=== PATIENT | female | born 1970 | race Caucasian/White ===

== ENCOUNTER 2018-03-13 05:07 | Outpatient (CLI) | payer BC ==
[~2018-03-13 05:07] MED LIST: CEPH-357 PO; CETI-1 PO; CYCL-394 PO; HYDR1TAB10 PO; MONT10TA21 PO; PREG75CA30 PO; ZOV200C PO; [UNRECOGNIZED DRUG - CODE] PO
== END 2018-03-13 23:59 | disposition home or self-care (01) ==
LOC: DIABETIC 05:07
PROVIDERS: ATTEND Nurse Practitioner Family
DX: Z71.3 Dietary counseling and surveillance (principal); E66.01 Morbid (severe) obesity due to excess calories; Z98.84 Bariatric surgery status
CPT/HCPCS: 97802